=== PATIENT | male | born 1965 | race Caucasian/White ===

== ENCOUNTER 2021-06-28 09:27 | Emergency (ER) | payer MEDICARE ==
[~2021-06-28] VITALS: Ht 175.3 cm; Wt 72.6 kg
== END 2021-06-28 12:54 ==
LOC: ER 10:00
DX: R58 Hemorrhage, not elsewhere classified (principal); Z93.1 Gastrostomy status; Z93.0 Tracheostomy status
CPT/HCPCS: 70450; 99284